=== PATIENT | male | born 1990 | race Caucasian/White ===

== ENCOUNTER 2022-02-06 17:21 | Emergency (ER) | payer BC, SELFPAY ==
--- NOTE | ~2022-02-06 | XR_ITS ---
EXAM: XR finger 3rd RT min 2V DATE: 02/06/2022 17:44 HISTORY: finger caught in mower blade, nail tore off . COMPARISON: None available. FINDINGS: Normal mineralization. Comminuted minimally displaced fracture of the right third distal t uft. No dislocation. No additional fracture. No lytic or blastic lesion. Joint spaces are maintained. No erosion or periosteal change. Soft tissue swelling at the tip of the right third finger, with chriss mohsen soft tissue disruption. Abnormal appearance of the nail and nailbed. Linear cortical fragments ve rsus radiopaque debris in the dorsal soft tissues. IMPRESSION: Comminuted, minimally displaced, and possibly open fracture of the right third distal tuf t. Soft tissue injuries appear to contain debris and involve the nailbed and nail avulsion. Reviewed, dictated and finalized at location [facility] IMPRESSION: Comminuted, minimally displaced, and possibly open fracture of the right third distal tuft. Soft tissue injuries appear to contain debris and invo lve the nailbed and nail avulsion.
--- NOTE | 2022-02-06 17:26 | ED.SKABFB ---
HPI - Skin/Abscess/Foreign Bdy General Chief complaint: Wound/Laceration Stated complaint: FINGER LACERATION Time Seen by Provider: 02/06/22 17:26 Source: patient and RN notes reviewed History of Present Illness HPI narrative: Patient is a 32-year-old male who presents to the Urgent Care with complaints of a right middle finger laceration. Patient states that there was grasped stuck in the lower blade and he stuck his hand down there to remove the grass, which then lacerated the right middle finger at the nail bed. Patient states that he has been unable to get the bleeding to stop after the occurrence at 2:00 p.m. this afternoon. Patient states that he has applied pressure and gauze. Patient states he irrigated the wound well and cleaned out. Patient states his last tetanus was in 2013. No other acute complaints. No acute distress noted. Patient aware of the plan of care. Some parts of this dictation were generated by voice recognition software and may contain typographical and/or grammatical inaccuracies. Related Data Allergies Allergy/AdvReac Type Severity Reaction Status Date / Time No Known Allergies Allergy Mild Verified 03/24/10 00:54 Review of Systems Review of Systems: CONSTITUTIONAL: Denies fever, chills, or sweats. EYES: Denies visual changes, redness, or discharge. ENT: Denies rhinorrhea, congestion, sore throat, or otalgia. CARDIOVASCULAR: Denies chest pain, palpitations, or edema. RESPIRATORY: Denies cough or dyspnea. GASTROINTESTINAL: Denies abdominal pain, nausea, vomiting, or diarrhea. GENITOURINARY: Denies dysuria or hematuria. SKIN: Reports of a laceration to the right middle finger MUSCULOSKELETAL: Denies back pain, joint pain, or myalgia. NEUROLOGIC: Denies headache, numbness, or weakness. All other systems reviewed are negative, except as documented in HPI. PMFSH Comments At the time of my signature, I reviewed and agree with the nursing past medical, surgical, social, and family history. There is no relevant family history pertinent to the patient complaint. Exam Narrative: GENERAL: This is a well-nourished, well-developed patient, in no apparent distress. HEAD: normocephalic, atraumatic. EYES: PERRL. Sclera clear/white. Vision is grossly intact. EARS: External ears normal NOSE: External nose normal with no obvious nasal discharge, nares without redness, no rhinorrhea. THROAT: Mucous membranes moist NECK: Neck supple CARDIOVASCULAR: Regular rate and rhythm without murmurs, gallops, or rubs. RESPIRATORY: Clear to auscultation. Breath sounds equal bilaterally. No wheezes, rales, or rhonchi. SKIN: Jagged irregular skin avulsion/laceration to the right middle digit tuft affecting the nail bed with complete removal of the nail. Linear superficial laceration to the ring finger of the right. Superficial abrasions along the knuckles of the left hand NEURO: awake, alert, and oriented to person, place and time. There were no obvious focal neurologic abnormalities. EXTREMITIES: No clubbing, cyanosis, or edema. No joint tenderness, effusion, or edema noted. No calf tenderness. Negative Homans sign bilaterally. Course Course Level of Care: Express Care Visit Vital Signs Vital signs: Vital Signs Temperature 98.8 F 02/06/22 17:33 Pulse Rate 85 02/06/22 17:33 Respiratory Rate 16 02/06/22 17:33 Blood Pressure 166/93 H 02/06/22 17:33 Pulse Oximetry 100 02/06/22 17:33 Temperature 98.8 F 02/06/22 17:33 Pulse Rate 85 02/06/22 17:33 Respiratory Rate 16 02/06/22 17:33 Blood Pressure 166/93 H 02/06/22 17:33 Pulse Oximetry 100 02/06/22 17:33 Reviewed- Patient is informed that they may have pre-hypertension or hypertension based on a blood pressure reading in the department. I recommend the patient call the primary care provider listed on their discharge instructions or a physician of their choice this week to arrange follow-up for further evaluation of possible pre-hypertensio
[2022-02-06 17:33] VITALS: BP 166/93; PULSE 85; RESP 16; TEMP 37.1; O2SAT 100
[2022-02-06] MEDS: cefTRIAXone 1 GM, LIDOCAINE HCL 1% LOCAL INJ 2.1 ML IM (18:27)
== END 2022-02-06 18:48 | disposition short-term general hospital (02) ==
PROVIDERS: Emergency Provider Nurse Practitioner Family; PCP Family Medicine Sports Medicine
DX: S61.312A Laceration without foreign body of right middle finger with damage to nail, initial encounter (principal); W26.8XXA Contact with other sharp object(s), not elsewhere classified, initial encounter
CPT/HCPCS: 73140; 96372; 99213; G0463; J0696